=== PATIENT | male | born 1965 | race Caucasian/White ===

== ENCOUNTER 2016-09-26 11:05 | Emergency (ER) | payer MEDICARE, MEDICAID ==
[2016-09-26 11:13] VITALS: BP 133/88
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
[2016-09-26] MEDS ORDERED: IBUPROFEN 600 MG TABLET PO STA (11:40)
[2016-09-26] MEDS ORDERED: ACETAMINOPHEN 325 MG TABLET PO STA (11:40)
[2016-09-26] MEDS ORDERED: ACETAMINOPHEN 325 MG TABLET PO ONE (12:24)
[2016-09-26] MEDS ORDERED: IBUPROFEN 600 MG TABLET PO ONE (12:24)
--- NOTE | 2016-09-26 12:36 | XRAY Preliminary Report ---
Exam: XR Ribs w/PA Chest RT IMPRESSION: Normal PA chest and right rib radiography. [facility] SITE ID: [id number]
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
--- NOTE | 2016-09-26 12:40 | XRAY Preliminary Report ---
Exam: XR Tib/Fib RT IMPRESSION: 1. No recent fracture evident. 2. Spurring along distal right tibiofibular syndesmosis. [facility] SITE ID: [id number]
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
== END 2016-09-26 12:52 | disposition home or self-care (01) ==
LOC: ED 11:05
DX: S80.11XA Contusion of right lower leg, initial encounter (principal); S20.211A Contusion of right front wall of thorax, initial encounter; V13.4XXA Pedal cycle driver injured in collision with car, pick-up truck or van in traffic accident, initial encounter; Y93.55 Activity, bike riding; Y92.488 Other paved roadways as the place of occurrence of the external cause; F17.200 Nicotine dependence, unspecified, uncomplicated
CPT/HCPCS: 71101; 73590; 99283; A9270

== ENCOUNTER 2016-11-27 15:43 | Emergency (ER) | payer MEDICARE, MEDICAID ==
--- NOTE | 2016-11-27 17:18 | XRAY Preliminary Report ---
Exam: XR Knee 4 View LT IMPRESSION: Large joint effusion, otherwise unremarkable knee radiography. [facility] SITE ID: [id number]
--- NOTE | 2016-11-27 17:20 | XRAY Report ---
EXAM: LEFT KNEE RADIOGRAPHY EXAM DATE: 11/27/2016 04:50 PM. CLINICAL HISTORY: Pain with ambulation after fall 2 days ago. Hyperextension injury. COMPARISON: None. TECHNIQUE: 4 views. FINDINGS: Bones: Normal. No fractures or bone lesions. Joints: Large joint effusion. No subluxations. Soft Tissues: Normal. No soft tissue swelling. IMPRESSION: Large joint effusion, otherwise unremarkable knee radiography. [facility] Referring Provider Line: [phone] SITE ID: [id number]
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
[2016-11-27 17:52] VITALS: BP 129/85
== END 2016-11-27 18:08 | disposition home or self-care (01) ==
LOC: ED 15:43
DX: S83.412A Sprain of medial collateral ligament of left knee, initial encounter (principal); W17.89XA Other fall from one level to another, initial encounter; Y93.39 Activity, other involving climbing, rappelling and jumping off; M25.462 Effusion, left knee; F17.200 Nicotine dependence, unspecified, uncomplicated
CPT/HCPCS: 29530; 99283

== ENCOUNTER 2019-02-10 13:15 | Outpatient (CLI) | payer MEDICAID | END 2019-02-10 13:16 | disposition critical access hospital (66) | LOC: EMS 13:15 | PROVIDERS: ATTEND Surgery | DX: R41.82 Altered mental status, unspecified (principal); R46.89 Other symptoms and signs involving appearance and behavior | CPT/HCPCS: A0425; A0429; A0999 ==

== ENCOUNTER 2019-02-10 13:29 | Emergency (ER) | payer MEDICAID, MEDICARE ==
[~2019-02-10 13:29] MED LIST: HALOPERIDOL 5 MG/ML VIAL IM STA; MIDAZOLAM 2 MG/2 ML VIAL IM STA
[2019-02-10] MEDS ORDERED: MIDAZOLAM 50 MG/10 ML VIAL ONE (13:39)
[2019-02-10] MEDS ORDERED: HALOPERIDOL 5 MG/ML VIAL ONE (13:39)
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
[2019-02-10] MEDS ORDERED: SODIUM CHLORIDE 0.9% 1,000 ML IV ONE (14:26)
[2019-02-10 14:46] LABS: BASOPHILS # (AUTO) 0.1 10^3/uL (0.0-0.1); BASOPHILS % (AUTO) 0.7 %; EOSINOPHILS # (AUTO) 0.3 10^3/uL (0.0-0.7); EOSINOPHILS % (AUTO) 3.9 %; HGB - HEMOGLOBIN 12.6 g/dL (14.0-18.0); LYMPHOCYTES % (AUTO) 11.9 %; MEAN CORPUSCULAR HEMOGLOBIN 30.7 pg (27.0-31.0); MEAN CORPUSCULAR HGB CONC 33.3 g/dL (32.0-36.0); MEAN PLATELET VOLUME 9.8 fL (7.4-11.4); MONOCYTES % (AUTO) 11.5 %; NEUTROPHILS # (AUTO) 5.9 10^3/uL (1.5-6.6); NEUTROPHILS % (AUTO) 71.5 %; PLT - PLATELET COUNT 245 10^3/uL (130-450); RED BLOOD COUNT 4.11 10^6/uL (4.70-6.10); RED CELL DISTRIBUTION WIDTH 13.2 % (12.0-15.0); WHITE BLOOD COUNT 8.3 x10^3/uL (4.8-10.8)
[2019-02-10 14:59] LABS: ACETAMINOPHEN < 10 ug/mL (10-30); ALBUMIN 4.1 g/dL (3.2-5.5); ALBUMIN/GLOBULIN RATIO 1.2 (1.0-2.2); ALKALINE PHOSPHATASE 44 IU/L (42-121); ALT ALANINE AMINOTRANSFERASE 33 IU/L (10-60); AST ASPARTATE AMINOTRANSFERASE 44 IU/L (10-42); BILIRUBIN,TOTAL 0.9 mg/dL (0.2-1.0); BUN - BLOOD UREA NITROGEN 29 mg/dL (6-20); CARBON DIOXIDE - CO2 26 mmol/L (21-32); CHLORIDE 100 mmol/L (101-111); CREATININE 1.4 mg/dL (0.6-1.2); GFR - MDRD 53 (>89); GLUCOSE 103 mg/dL (70-100); LIPASE 24 U/L (22-51); SALICYLATE < 6.0 mg/dL; SODIUM 139 mmol/L (135-145); TOTAL PROTEIN 7.6 g/dL (6.7-8.2)
[2019-02-10 15:48] VITALS: BP 127/74
[2019-02-10] MEDS ORDERED: LACTATED RINGERS 1,000 ML IV STA (15:49)
[2019-02-10 17:57] LABS: MUDS CUTOFF CONCENTRATIONS CUTOFF CONC BELOW:
[2019-02-10 18:00] LABS: BILIRUBIN,URINE NEGATIVE (NEGATIVE); GLUCOSE, URINE (UA) NEGATIVE (NEGATIVE); KETONES,URINE (UA) 15 mg/dL (NEGATIVE); LEUKOCYTE ESTERASE, URINE NEGATIVE (NEGATIVE); NITRITE,URINE NEGATIVE (NEGATIVE); OCCULT BLOOD,URINE NEGATIVE (NEGATIVE); PROTEIN,URINE NEGATIVE (NEGATIVE); UROBILINOGEN,URINE 0.2 (NORMAL) E.U./dL (NORMAL)
[2019-02-10 18:02] LABS: CLARITY,URINE CLEAR (CLEAR)
[2019-02-10 18:15] LABS: AMPHETAMINE SCREEN,URINE POSITIVE (NEGATIVE); BENZODIAZEPINES SCREEN, URINE POSITIVE (NEGATIVE); COCAINE SCREEN URINE NEGATIVE (NEGATIVE); METHADONE SCREEN, URINE NEGATIVE (NEGATIVE); METHAMPHETAMINES SCREEN, URINE POSITIVE (NEGATIVE); OPIATE SCREEN, URINE NEGATIVE (NEGATIVE); OXYCODONE SCREEN, URINE NEGATIVE (NEGATIVE); PROPOXYPHENE SCREEN, URINE NEGATIVE (NEGATIVE); TRICYCLIC ANTIDEPRESSANT,URINE NEGATIVE (NEGATIVE)
[2019-02-10 18:26] LABS: CALCIUM 8.7 mg/dL (8.5-10.3); CREATININE 1.1 mg/dL (0.6-1.2)
== END 2019-02-10 22:22 | disposition home or self-care (01) ==
LOC: EDUNIT# → ED 13:29
DX: F15.988 Other stimulant use, unspecified with other stimulant-induced disorder (principal); R45.1 Restlessness and agitation; Z78.1 Physical restraint status; N17.9 Acute kidney failure, unspecified; E87.6 Hypokalemia; F20.9 Schizophrenia, unspecified; F17.200 Nicotine dependence, unspecified, uncomplicated
CPT/HCPCS: 36415; 80048; 80053; 80306; 80307; 80320; 80329; 81003; 83690; 84443; 85025; 96360; 96372; 99281; 99284; J7120; 81001; 87086

== ENCOUNTER 2020-08-04 06:30 | Outpatient (CLI) | payer MEDICAID | END 2020-08-04 06:31 | disposition left against medical advice (07) | LOC: EMS 06:30 | DX: R07.81 Pleurodynia (principal) ==

== ENCOUNTER 2022-08-04 06:41 | Outpatient (CLI) | payer MEDICAID | END 2022-08-04 06:42 | disposition home or self-care (01) | LOC: EMS 06:41 | DX: Z53.21 Procedure and treatment not carried out due to patient leaving prior to being seen by health care provider (principal) ==